=== PATIENT | male | born 1980 | race Two or more races ===

== ENCOUNTER 2017-01-01 11:33 | Inpatient (IN) | payer MEDICAID ==
[~2017-01-01] VITALS: Ht 167.6 cm; Wt 117.9 kg
[2017-01-01 12:29] VITALS: BP 181/120
[2017-01-01 12:34] LABS: BASOPHILS % (AUTO) 1.5 % (0.0-2.0); EOSINOPHILS % (AUTO) 4.4 % (0.0-3.0); LYMPHOCYTES % (AUTO) 15.3 % (20.0-45.0); MEAN CORPUSCULAR HGB CONC 33.2 G/DL (32.0-36.0); MEAN CORPUSCULAR VOLUME 93 FL (80-99); MEAN PLATELET VOLUME 8.2 FL (6.5-10.1); MONOCYTES % (AUTO) 6.4 % (1.0-10.0); NEUTROPHILS % (AUTO) 72.5 % (45.0-75.0); PLATELET COUNT 181 K/UL (150-450); RED BLOOD COUNT 4.43 M/UL (4.70-6.10); WHITE BLOOD COUNT 9.8 K/UL (4.8-10.8)
[2017-01-01 12:41] LABS: KETONES,URINE NEGATIVE (NEGATIVE); LEUKOCYTE ESTERASE ,URINE 1+ (NEGATIVE); NITRITE,URINE NEGATIVE (NEGATIVE); PH,URINE 7 (4.5-8.0); PROTEIN,URINE 2+ (NEGATIVE); UROBILINOGEN,URINE NORMAL MG/DL (0.0-1.0)
[2017-01-01 12:43] LABS: APPEARANCE,URINE SLIGHTLY CLOUDY
[2017-01-01 12:45] LABS: ALANINE AMINOTRANSFERASE 47 U/L (12-78); ALBUMIN/GLOBULIN RATIO 0.9 (1.0-2.7); ANION GAP 6 mmol/L (5-15); ASPARTATE AMINO TRANSFERASE 47 U/L (15-37); CALCIUM 9.1 MG/DL (8.5-10.1); CARBON DIOXIDE 31 MMOL/L (21-32); CHLORIDE 106 MMOL/L (98-107); CREATININE 1.1 MG/DL (0.55-1.30); GLOMERULAR FILTRATION RATE > 60 mL/min (>60); POTASSIUM 4.1 MMOL/L (3.5-5.1); SODIUM 143 MMOL/L (136-145); TOTAL PROTEIN 7.4 G/DL (6.4-8.2)
[2017-01-01 12:51] LABS: BACTERIA,URINE FEW /HPF; RBC,URINE 0-2 /HPF (0 - 0); SQUAMOUS EPITHELIAL CELL,UR FEW /LPF (NONE/OCC)
[2017-01-01] MEDS ORDERED: Lisinopril 20mg tab ORAL ONE (14:30)
[2017-01-01] MEDS ORDERED: Nitroglycerin 2% oint pkt TOPIC ONE (14:30)
--- NOTE | 2017-01-01 14:41 | Diagnostic Imaging Report ---
Indication: SOB, chest pain Technique: One view of the chest Comparison: none Findings: Body habitus limits evaluation. Heart is enlarged. There is generalized mild interstitial congestion. No focal airspace consolidation. No effusions. Impression: Cardiomegaly with generalized mild interstitial congestion
[2017-01-01 15:01] VITALS: BP 206/156
[2017-01-01 15:30] VITALS: BP 201/138
[2017-01-01] MEDS ORDERED: NKM (15:38)
[2017-01-01 15:56] VITALS: BP 198/129
--- NOTE | 2017-01-01 16:34 | Emergency Room Report ---
History of Present Illness General Chief Complaint: Dyspnea/Respdistress Source: Patient Present Illness HPI This patient complains of a week of pain in his lower chest and upper abdomen. He is also has shortness of breath. He denies recent illness. Denies cough or congestion. Denies fever chills. He has never had this previously. He has no other complaints. Allergies: Coded Allergies: No Known Allergies (Unverified , 01/01/17) Patient History Past Medical History: none Past Surgical History: none Social History: Denies: smoking, alcohol use, drug use Reviewed Nursing Documentation: PMH: Agreed, PSxH: Agreed Nursing Documentation-PMH Hx Cardiac Problems: No Hx Hypertension: No Hx Pacemaker: No Review of Systems All Other Systems: negative except mentioned in HPI Physical Exam Vital Signs Date Time Temp Pulse Resp B/P (MAP) Pulse Ox O2 Delivery O2 Flow Rate FiO2 01/01/17 11:35 99.1 103 18 193/136 93 Room Air Sp02 EP Interpretation: reviewed, normal General Appearance: no apparent distress, alert, GCS 15, non-toxic Head: normocephalic, atraumatic Eyes: bilateral eye normal inspection, bilateral eye PERRL ENT: hearing grossly normal, normal pharynx, no angioedema, normal voice Neck: full range of motion, supple/symm/no masses Respiratory: chest non-tender, no respiratory distress, no retraction, no accessory muscle use, rales, speaking full sentences Cardiovascular #1: regular rate, rhythm, no edema Gastrointestinal: normal bowel sounds, non tender, soft, non-distended, no guarding, no rebound Rectal: deferred Musculoskeletal: back normal, gait/station normal, normal range of motion, non- tender Neurologic: alert, oriented x3, responsive, motor strength/tone normal, sensory intact, speech normal Psychiatric: judgement/insight normal, memory normal, mood/affect normal, no suicidal/homicidal ideation Skin: normal color, no rash, warm/dry, well hydrated Medical Decision Making Diagnostic Impression: Primary Impression: CHF (congestive heart failure) Additional Impressions: Cardiomegaly Malignant hypertension ER Course This patient presents with a new diagnosis of congestive heart failure. He has cardiomegaly on chest x-ray. He was also found to be very hypertensive with systolic blood pressures over 200. He does have a negative troponin. He was given lisinopril orally. He is also given hydralazine IV. Nitro paste was placed on his chest wall and he was given Lasix IV. He will be admitted for further evaluation and treatment by cardiology. Laboratory Tests Test 01/01/17 12:16 01/01/17 12:32 White Blood Count 9.8 K/UL (4.8-10.8) Red Blood Count 4.43 M/UL (4.70-6.10) L Hemoglobin 13.8 G/DL (14.2-18.0) L Hematocrit 41.4 % (42.0-52.0) L Mean Corpuscular Volume 93 FL (80-99) Mean Corpuscular Hemoglobin 31.0 PG (27.0-31.0) Mean Corpuscular Hemoglobin Concent 33.2 G/DL (32.0-36.0) Red Cell Distribution Width 11.0 % (11.6-14.8) L Platelet Count 181 K/UL (150-450) Mean Platelet Volume 8.2 FL (6.5-10.1) Neutrophils (%) (Auto) 72.5 % (45.0-75.0) Lymphocytes (%) (Auto) 15.3 % (20.0-45.0) L Monocytes (%) (Auto) 6.4 % (1.0-10.0) Eosinophils (%) (Auto) 4.4 % (0.0-3.0) H Basophils (%) (Auto) 1.5 % (0.0-2.0) Sodium Level 143 MMOL/L (136-145) Potassium Level 4.1 MMOL/L (3.5-5.1) Chloride Level 106 MMOL/L (98-107) Carbon Dioxide Level 31 MMOL/L (21-32) Anion Gap 6 mmol/L (5-15) Blood Urea Nitrogen 14 mg/dL (7-18) Creatinine 1.1 MG/DL (0.55-1.30) Estimate Glomerular Filtration Rate > 60 mL/min (>60) Glucose Level 143 MG/DL (74-106) H Calcium Level 9.1 MG/DL (8.5-10.1) Total Bilirubin 0.9 MG/DL (0.2-1.0) Aspartate Amino Transferase (AST) 47 U/L (15-37) H Alanine Aminotransferase (ALT) 47 U/L (12-78) Alkaline Phosphatase 113 U/L (46-116) Total Protein 7.4 G/DL (6.4-8.2) Albumin 3.6 G/DL (3.4-5.0) Globulin 3.8 g/dL Albumin/Globulin Ratio 0.9 (1.0-2.7) L Urine Color Yellow Urine Appearance Slightly cloudy Urine pH 7 (4.5-8.0) Urine Specific [place] 1.010 (1.005-1.035) Urine Protein 2+ (NEGATIVE) H Urine Glucose (UA) Negative (NEGATIVE) Urine Ketones Negative (NEGATIVE) Urine Occult Blood Negative (NEGATIVE) Urine Nitrite Negative (NEGATIVE) Urine Bilirubin Negative (NEGATIVE) Urine Urobilinogen Normal MG/DL (0.0-1.0) Urine Leukocyte Esterase 1+ (NEGATIVE) H Urine RBC 0-2 /HPF (0 - 0) H Urine WBC 2-4 /HPF (0 - 0) Urine Squamous Epithelial Cells Few /LPF (NONE/OCC) Urine Bacteria Few /HPF (NONE) Troponin I 0.012 ng/mL (0.000-0.056) Pro-B-Type Natriuretic Peptide 1291 pg/mL (0-125) H EKG Diagnostic Results Rate: normal Rhythm: NSR ST Segments: other Other Impression NSST Rhythm Strip Diag. Results EP Interpretation: yes Rate: 90's Rhythm: NSR, no PVC's, no ectopy Chest X-Ray Diagnostic Results Chest X-Ray Diagnostic Results : Chest X-Ray Ordered: Yes # of Views/Limited/Complete: 1 View Indication: Shortness of Breath EP Interpretation: No Interpretation: no consolidation, no effusion, no pneumothorax, other Impression: Other - Cardiomegaly with patchy opacities Electronically Signed by: Dav Last Vital Signs Date Time Temp Pulse Resp B/P (MAP) Pulse Ox O2 Delivery O2 Flow Rate FiO2 01/01/17 15:56 99 16 198/129 99 Room Air 01/01/17 15:01 99.1 Disposition: ADMITTED INPATIENT Condition: Serious Referrals: NOT CHOSEN IPA/,REFERRING (PCP) SAUL ANDERSON D.O. Jan 01, 2017 16:34
[2017-01-01] MEDS ORDERED: Albuterol/Ipratropium 3ml neb HHN PRN (16:45)
[2017-01-01] MEDS ORDERED: Miralax 17gm pkt ORAL PRN (16:45)
[2017-01-01 17:15] VITALS: BP 159/109
--- NOTE | 2017-01-01 17:36 | History and Physical ---
History of Present Illness General Date patient seen: Jan 01, 2017 Time patient seen: 17:36 Reason for Hospitalization: Dyspnea/Respdistress Present Illness HPI 36y/o male with no sig pmh who presents with SOB and epigastric pain. Pt notes worsening SOB since this morning especially with activity but also at rest. Also w/ orthopnea and PND. Denies sig BLE swelling, f/c, n/v, d/c, dysuria. C/o epigastric pain. Denies recent travel, sick contacts and trauma. Allergies: Coded Allergies: No Known Allergies (Unverified , 01/01/17) Medication History Scheduled No Known Medications* (NKM - No Known Medications*), 0 ., (Reported) Patient History History Provided By: Patient, Family Member, Medical Record Healthcare decision maker Resuscitation status Advanced Directive on File Past Medical/Surgical History Past Medical/Surgical History: (1) No pertinent past medical history Family History Family History: Patient reports no known family medical history. Social History Social History: (1) No significant social history Review of Systems Constitutional: Reports: no symptoms Eye: Reports: no symptoms ENT: Reports: no symptoms Respiratory: Reports: orthopnea, shortness of breath, SALAS Cardiovascular: Reports: no symptoms Gastrointestinal: Reports: abdominal pain Genitourinary: Reports: no symptoms Musculoskeletal: Reports: no symptoms Skin: Reports: no symptoms Psychiatric: Reports: no symptoms Neurological: Reports: no symptoms Endocrine: Reports: no symptoms Hematologic/Lymphatic: Reports: no symptoms Physical Exam Physical Exam Narrative General: alert, cooperative, no distress, appears stated age Head: normocephalic, without obvious abnormality, atraumatic Eyes: conjunctivae/corneas clear. PERRL, EOM's intact Throat: lips, mucosa, and tongue normal. MMM Neck: supple, symmetrical, trachea midline, and no JVD Lungs: +mild crackles b/l Heart: regular rate and rhythm, S1, S2 normal, no murmur, click, rub or gallop Abdomen: soft, non-tender, non-distended, bowel sounds normal; no masses or organomegaly Extremities: extremities normal, atraumatic, no cyanosis or edema Pulses: 2+ and symmetric Skin: skin color, texture, turgor normal; no rashes or lesions Neurologic: grossly normal, no focal deficits Last 24 Hour Vital Signs Date Time Temp Pulse Resp B/P (MAP) Pulse Ox O2 Delivery O2 Flow Rate FiO2 01/01/17 17:20 99.1 92 9 159/109 94 Room Air 01/01/17 17:15 99.1 92 9 159/109 94 Room Air 01/01/17 16:34 182/124 01/01/17 15:56 99 16 198/129 99 Room Air 01/01/17 15:30 92 16 201/138 98 Room Air 01/01/17 15:01 99.1 97 16 206/156 96 Room Air 01/01/17 14:31 210/146 01/01/17 14:31 210/146 01/01/17 12:29 99.1 95 22 181/120 97 Room Air 01/01/17 12:29 103 18 Room Air 01/01/17 11:38 99.1 103 18 193/136 93 Room Air 01/01/17 11:35 99.1 103 18 193/136 93 Room Air Laboratory Tests Test 01/01/17 12:16 01/01/17 12:32 White Blood Count 9.8 K/UL (4.8-10.8) Red Blood Count 4.43 M/UL (4.70-6.10) L Hemoglobin 13.8 G/DL (14.2-18.0) L Hematocrit 41.4 % (42.0-52.0) L Mean Corpuscular Volume 93 FL (80-99) Mean Corpuscular Hemoglobin 31.0 PG (27.0-31.0) Mean Corpuscular Hemoglobin Concent 33.2 G/DL (32.0-36.0) Red Cell Distribution Width 11.0 % (11.6-14.8) L Platelet Count 181 K/UL (150-450) Mean Platelet Volume 8.2 FL (6.5-10.1) Neutrophils (%) (Auto) 72.5 % (45.0-75.0) Lymphocytes (%) (Auto) 15.3 % (20.0-45.0) L Monocytes (%) (Auto) 6.4 % (1.0-10.0) Eosinophils (%) (Auto) 4.4 % (0.0-3.0) H Basophils (%) (Auto) 1.5 % (0.0-2.0) Sodium Level 143 MMOL/L (136-145) Potassium Level 4.1 MMOL/L (3.5-5.1) Chloride Level 106 MMOL/L (98-107) Carbon Dioxide Level 31 MMOL/L (21-32) Anion Gap 6 mmol/L (5-15) Blood Urea Nitrogen 14 mg/dL (7-18) Creatinine 1.1 MG/DL (0.55-1.30) Estimat Glomerular Filtration Rate > 60 mL/min (>60) Glucose Level 143 MG/DL (74-106) H Calcium Level 9.1 MG/DL (8.5-10.1) Total Bilirubin 0.9 MG/DL (0.2-1.0) Aspartate Amino Transf (AST/SGOT) 47 U/L (15-37) H Alanine Aminotransferase (ALT/SGPT) 47 U/L (12-78) Alkaline Phosphatase 113 U/L (46-116) Total Protein 7.4 G/DL (6.4-8.2) Albumin 3.6 G/DL (3.4-5.0) Globulin 3.8 g/dL Albumin/Globulin Ratio 0.9 (1.0-2.7) L Urine Color Yellow Urine Appearance Slightly cloudy Urine pH 7 (4.5-8.0) Urine Specific [place] 1.010 (1.005-1.035) Urine Protein 2+ (NEGATIVE) H Urine Glucose (UA) Negative (NEGATIVE) Urine Ketones Negative (NEGATIVE) Urine Occult Blood Negative (NEGATIVE) Urine Nitrite Negative (NEGATIVE) Urine Bilirubin Negative (NEGATIVE) Urine Urobilinogen Normal MG/DL (0.0-1.0) Urine Leukocyte Esterase 1+ (NEGATIVE) H Urine RBC 0-2 /HPF (0 - 0) H Urine WBC 2-4 /HPF (0 - 0) Urine Squamous Epithelial Cells Few /LPF (NONE/OCC) Urine Bacteria Few /HPF (NONE) Troponin I 0.012 ng/mL (0.000-0.056) Pro-B-Type Natriuretic Peptide 1291 pg/mL (0-125) H Height (Feet): 5 Height (Inches): 6.00 Weight (Pounds): 260 Medications Current Medications Medications (Trade) Dose Ordered Sig/Bety Route PRN Reason Start Time Stop Time Status Last Admin Dose Admin Acetaminophen (Tylenol) 650 mg Q4H PRN ORAL Mild Pain (Pain Scale 1-3) 01/01/17 16:45 01/31/17 16:44 Albuterol/ Ipratropium (DuoNeb 0.5-3(2.5)mg/3ml) 3 ml Q4H PRN HHN Shortness of Breath 01/01/17 16:45 01/06/17 16:44 Dextrose (Dextrose 50%) STAT PRN IV Hypoglycemia 01/01/17 16:45 01/31/17 16:44 Docusate Sodium (Colace) 100 mg EVERY 12 HOURS ORAL 01/01/17 21:00 01/31/17 20:59 Heparin Sodium (Porcine) (Heparin 5000 units/ml) 5,000 units EVERY 12 HOURS SUBQ 01/01/17 21:00 01/31/17 20:59 Ondansetron HCl (Zofran) 4 mg Q6H PRN IVP Nausea & Vomiting 01/01/17 16:45 01/31/17 16:44 Polyethylene Glycol (Miralax) 17 gm DAILYPRN PRN ORAL Constipation 01/01/17 16:45 01/31/17 16:44 Assessment/Plan Problem List: (1) Hypertensive urgency ICD Codes: I16.0 - Hypertensive urgency SNOMED: 344140562 (2) CHF (congestive heart failure) ICD Codes: I50.9 - Heart failure, unspecified SNOMED: 89153350 Status: stable Assessment/Plan Admit to tele Trend trop/EKG Check TTE Lasix 20mg IV BID Strict I/O's, daily weights Start coreg 3.125mg BID Start lisinopril 20mg daily Cardiology and pulm eval FULL CODE D/w pt/family, RN, cardiology and pulm regarding mgmt and dispo Ludwin Child M.D. Jan 01, 2017 17:36
[2017-01-01 17:48] VITALS: BP 152/113
[2017-01-01] MEDS: Docusate 100mg cap ORAL SCH (20:54)
[2017-01-01] MEDS: Carvedilol 6.25mg Tab ORAL SCH (20:54)
[2017-01-01] MEDS: Heparin 5000 units/ml inj SUBQ SCH (20:56)
[2017-01-02 00:25] VITALS: BP 159/111
[2017-01-02 08:14] VITALS: BP 154/98
[2017-01-02] MEDS: Docusate 100mg cap ORAL SCH ×2 (08:18→19:52)
[2017-01-02] MEDS: Carvedilol 6.25mg Tab ORAL SCH ×2 (08:18→19:56)
[2017-01-02] MEDS: Heparin 5000 units/ml inj SUBQ SCH ×2 (08:21→19:59)
[2017-01-02 08:28] LABS: BASOPHILS % (AUTO) 1.2 % (0.0-2.0); MEAN CORPUSCULAR HEMOGLOBIN 31.8 PG (27.0-31.0); MEAN CORPUSCULAR HGB CONC 33.6 G/DL (32.0-36.0); MEAN CORPUSCULAR VOLUME 95 FL (80-99); MONOCYTES % (AUTO) 8.6 % (1.0-10.0); NEUTROPHILS % (AUTO) 65.1 % (45.0-75.0); PLATELET COUNT 202 K/UL (150-450); RED CELL DISTRIBUTION WIDTH 11.3 % (11.6-14.8); WHITE BLOOD COUNT 8.4 K/UL (4.8-10.8)
[2017-01-02 08:30] LABS: ALANINE AMINOTRANSFERASE 40 U/L (12-78); ASPARTATE AMINO TRANSFERASE 24 U/L (15-37); BILIRUBIN,DIRECT 0.2 MG/DL (0.0-0.3); CHOLESTEROL 152 MG/DL (< 200); CHOLESTEROL/HDL RATIO 3.1 (3.3-4.4); THYROID STIMULATING HORMONE 3.606 uiU/mL (0.360-3.740); TOTAL PROTEIN 7.5 G/DL (6.4-8.2)
[2017-01-02] MEDS ORDERED: Lisinopril 20mg tab ORAL SCH (09:00)
[2017-01-02 09:26] LABS: ANION GAP 9 mmol/L (5-15); CALCIUM 9.2 MG/DL (8.5-10.1); CARBON DIOXIDE 32 MMOL/L (21-32); CHLORIDE 103 MMOL/L (98-107); CREATININE 1.4 MG/DL (0.55-1.30); MAGNESIUM 2.2 MG/DL (1.8-2.4); POTASSIUM 3.3 MMOL/L (3.5-5.1); SODIUM 144 MMOL/L (136-145)
[2017-01-02 09:30] LABS: HEMOGLOBIN A1C 6.1 % (4.3-6.0)
--- NOTE | 2017-01-02 11:18 | Cardiac Electrophysiology PN ---
Subjective Subjective [id number] Objective Last 24 Hour Vital Signs Date Time Temp Pulse Resp B/P (MAP) Pulse Ox O2 Delivery O2 Flow Rate FiO2 01/02/17 08:20 154/98 01/02/17 08:18 94 154/98 01/02/17 08:14 98.1 94 18 154/98 97 Room Air 01/02/17 04:00 75 01/02/17 00:25 98.2 85 20 159/111 94 Room Air 01/02/17 00:00 88 01/01/17 20:54 92 158/110 01/01/17 20:25 94 18 Room Air 01/01/17 20:00 99 01/01/17 17:48 97.3 95 18 152/113 95 Room Air 01/01/17 17:20 99.1 92 9 159/109 94 Room Air 01/01/17 17:15 99.1 92 9 159/109 94 Room Air 01/01/17 16:34 182/124 01/01/17 15:56 99 16 198/129 99 Room Air 01/01/17 15:30 92 16 201/138 98 Room Air 01/01/17 15:01 99.1 97 16 206/156 96 Room Air 01/01/17 14:31 210/146 01/01/17 14:31 210/146 01/01/17 12:29 99.1 95 22 181/120 97 Room Air 01/01/17 12:29 103 18 Room Air 01/01/17 11:38 99.1 103 18 193/136 93 Room Air 01/01/17 11:35 99.1 103 18 193/136 93 Room Air Intake and Output 01/02/17 01/03/17 19:00 07:00 Intake Total 240 ml Balance 240 ml Intake Oral 240 ml Laboratory Tests Test 01/01/17 12:16 01/01/17 12:32 01/02/17 06:40 White Blood Count 9.8 K/UL (4.8-10.8) 8.4 K/UL (4.8-10.8) Red Blood Count 4.43 M/UL (4.70-6.10) L 4.40 M/UL (4.70-6.10) L Hemoglobin 13.8 G/DL (14.2-18.0) L 14.0 G/DL (14.2-18.0) L Hematocrit 41.4 % (42.0-52.0) L 41.6 % (42.0-52.0) L Mean Corpuscular Volume 93 FL (80-99) 95 FL (80-99) Mean Corpuscular Hemoglobin 31.0 PG (27.0-31.0) 31.8 PG (27.0-31.0) H Mean Corpuscular Hemoglobin Concent 33.2 G/DL (32.0-36.0) 33.6 G/DL (32.0-36.0) Red Cell Distribution Width 11.0 % (11.6-14.8) L 11.3 % (11.6-14.8) L Platelet Count 181 K/UL (150-450) 202 K/UL (150-450) Mean Platelet Volume 8.2 FL (6.5-10.1) 9.0 FL (6.5-10.1) Neutrophils (%) (Auto) 72.5 % (45.0-75.0) 65.1 % (45.0-75.0) Lymphocytes (%) (Auto) 15.3 % (20.0-45.0) L 21.0 % (20.0-45.0) Monocytes (%) (Auto) 6.4 % (1.0-10.0) 8.6 % (1.0-10.0) Eosinophils (%) (Auto) 4.4 % (0.0-3.0) H 4.0 % (0.0-3.0) H Basophils (%) (Auto) 1.5 % (0.0-2.0) 1.2 % (0.0-2.0) Sodium Level 143 MMOL/L (136-145) 144 MMOL/L (136-145) Potassium Level 4.1 MMOL/L (3.5-5.1) 3.3 MMOL/L (3.5-5.1) L Chloride Level 106 MMOL/L (98-107) 103 MMOL/L (98-107) Carbon Dioxide Level 31 MMOL/L (21-32) 32 MMOL/L (21-32) Anion Gap 6 mmol/L (5-15) 9 mmol/L (5-15) Blood Urea Nitrogen 14 mg/dL (7-18) 16 mg/dL (7-18) Creatinine 1.1 MG/DL (0.55-1.30) 1.4 MG/DL (0.55-1.30) H Estimat Glomerular Filtration Rate > 60 mL/min (>60) 57.0 mL/min (>60) Glucose Level 143 MG/DL (74-106) H 88 MG/DL (74-106) Calcium Level 9.1 MG/DL (8.5-10.1) 9.2 MG/DL (8.5-10.1) Total Bilirubin 0.9 MG/DL (0.2-1.0) 1.0 MG/DL (0.2-1.0) Aspartate Amino Transf (AST/SGOT) 47 U/L (15-37) H 24 U/L (15-37) Alanine Aminotransferase (ALT/SGPT) 47 U/L (12-78) 40 U/L (12-78) Alkaline Phosphatase 113 U/L (46-116) 108 U/L (46-116) Total Protein 7.4 G/DL (6.4-8.2) 7.5 G/DL (6.4-8.2) Albumin 3.6 G/DL (3.4-5.0) 3.7 G/DL (3.4-5.0) Globulin 3.8 g/dL Albumin/Globulin Ratio 0.9 (1.0-2.7) L Urine Color Yellow Urine Appearance Slightly cloudy Urine pH 7 (4.5-8.0) Urine Specific [place] 1.010 (1.005-1.035) Urine Protein 2+ (NEGATIVE) H Urine Glucose (UA) Negative (NEGATIVE) Urine Ketones Negative (NEGATIVE) Urine Occult Blood Negative (NEGATIVE) Urine Nitrite Negative (NEGATIVE) Urine Bilirubin Negative (NEGATIVE) Urine Urobilinogen Normal MG/DL (0.0-1.0) Urine Leukocyte Esterase 1+ (NEGATIVE) H Urine RBC 0-2 /HPF (0 - 0) H Urine WBC 2-4 /HPF (0 - 0) Urine Squamous Epithelial Cells Few /LPF (NONE/OCC) Urine Bacteria Few /HPF (NONE) Troponin I 0.012 ng/mL (0.000-0.056) 0.011 ng/mL (0.000-0.056) Pro-B-Type Natriuretic Peptide 1291 pg/mL (0-125) H 750 pg/mL (0-125) H Urine Opiates Screen Negative (NEGATIVE) Urine Barbiturates Screen Negative (NEGATIVE) Phencyclidine (PCP) Screen Negative (NEGATIVE) Urine Amphetamines Screen Negative (NEGATIVE) Urine Benzodiazepines Screen Negative (NEGATIVE) Urine Cocaine Screen Negative (NEGATIVE) Urine Marijuana (THC) Screen Negative (NEGATIVE) Hemoglobin A1c 6.1 % (4.3-6.0) H Magnesium Level 2.2 MG/DL (1.8-2.4) Direct Bilirubin 0.2 MG/DL (0.0-0.3) Triglycerides Level 98 MG/DL (0-200) Cholesterol Level 152 MG/DL (< 200) LDL Cholesterol 102 mg/dL (<100) H HDL Cholesterol 49 MG/DL (40-60) Cholesterol/HDL Ratio 3.1 (3.3-4.4) L Thyroid Stimulating Hormone (TSH) 3.606 uiU/mL (0.360-3.740) RASHEL MA Jan 02, 2017 11:18
[2017-01-02 11:21] VITALS: BP 148/104
--- NOTE | 2017-01-02 15:36 | Consultation ---
History of Present Illness General Date patient seen: Jan 02, 2017 Chief Complaint: Dyspnea/Respdistress Present Illness HPI 36 year old male without any PMHx presented to [facility] with CC of pain in his lower chest and upper abdomen. He is also has shortness of breath. He denies recent illness. Denies cough or congestion. Denies fever chills. His CXR showed cardiomegaly and mild edema. He is admitted for further evaluation. Allergies: Coded Allergies: No Known Allergies (Unverified , 01/01/17) Medication History Scheduled No Known Medications* (NKM - No Known Medications*), 0 ., (Reported) Patient History Healthcare decision maker Resuscitation status Full Code Advanced Directive on File Past Medical/Surgical History Past Medical/Surgical History: (1) No pertinent past medical history Review of Systems All Other Systems: negative except mentioned in HPI Physical Exam General Appearance: WD/WN Lines, tubes and drains: peripheral HEENT: normocephalic, anicteric Neck: non-tender, normal alignment Respiratory/Chest: chest wall non-tender, lungs clear Cardiovascular/Chest: normal peripheral pulses, normal rate Abdomen: normal bowel sounds Genitourinary/Rectal: normal genital exam Last 24 Hour Vital Signs Date Time Temp Pulse Resp B/P (MAP) Pulse Ox O2 Delivery O2 Flow Rate FiO2 01/02/17 11:21 98.1 83 20 148/104 90 Room Air 01/02/17 10:01 83 18 Room Air 01/02/17 08:20 154/98 01/02/17 08:18 94 154/98 01/02/17 08:14 98.1 94 18 154/98 97 Room Air 01/02/17 04:00 75 01/02/17 00:25 98.2 85 20 159/111 94 Room Air 01/02/17 00:00 88 01/01/17 20:54 92 158/110 01/01/17 20:25 94 18 Room Air 01/01/17 20:00 99 01/01/17 17:48 97.3 95 18 152/113 95 Room Air 01/01/17 17:20 99.1 92 9 159/109 94 Room Air 01/01/17 17:15 99.1 92 9 159/109 94 Room Air 01/01/17 16:34 182/124 01/01/17 15:56 99 16 198/129 99 Room Air Intake and Output 01/02/17 01/03/17 19:00 07:00 Intake Total 240 ml Balance 240 ml Intake Oral 240 ml Laboratory Tests Test 01/02/17 06:40 White Blood Count 8.4 K/UL (4.8-10.8) Red Blood Count 4.40 M/UL (4.70-6.10) L Hemoglobin 14.0 G/DL (14.2-18.0) L Hematocrit 41.6 % (42.0-52.0) L Mean Corpuscular Volume 95 FL (80-99) Mean Corpuscular Hemoglobin 31.8 PG (27.0-31.0) H Mean Corpuscular Hemoglobin Concent 33.6 G/DL (32.0-36.0) Red Cell Distribution Width 11.3 % (11.6-14.8) L Platelet Count 202 K/UL (150-450) Mean Platelet Volume 9.0 FL (6.5-10.1) Neutrophils (%) (Auto) 65.1 % (45.0-75.0) Lymphocytes (%) (Auto) 21.0 % (20.0-45.0) Monocytes (%) (Auto) 8.6 % (1.0-10.0) Eosinophils (%) (Auto) 4.0 % (0.0-3.0) H Basophils (%) (Auto) 1.2 % (0.0-2.0) Sodium Level 144 MMOL/L (136-145) Potassium Level 3.3 MMOL/L (3.5-5.1) L Chloride Level 103 MMOL/L (98-107) Carbon Dioxide Level 32 MMOL/L (21-32) Anion Gap 9 mmol/L (5-15) Blood Urea Nitrogen 16 mg/dL (7-18) Creatinine 1.4 MG/DL (0.55-1.30) H Estimat Glomerular Filtration Rate 57.0 mL/min (>60) Glucose Level 88 MG/DL (74-106) Hemoglobin A1c 6.1 % (4.3-6.0) H Calcium Level 9.2 MG/DL (8.5-10.1) Magnesium Level 2.2 MG/DL (1.8-2.4) Total Bilirubin 1.0 MG/DL (0.2-1.0) Direct Bilirubin 0.2 MG/DL (0.0-0.3) Aspartate Amino Transf (AST/SGOT) 24 U/L (15-37) Alanine Aminotransferase (ALT/SGPT) 40 U/L (12-78) Alkaline Phosphatase 108 U/L (46-116) Troponin I 0.011 ng/mL (0.000-0.056) Pro-B-Type Natriuretic Peptide 750 pg/mL (0-125) H Total Protein 7.5 G/DL (6.4-8.2) Albumin 3.7 G/DL (3.4-5.0) Triglycerides Level 98 MG/DL (0-200) Cholesterol Level 152 MG/DL (< 200) LDL Cholesterol 102 mg/dL (<100) H HDL Cholesterol 49 MG/DL (40-60) Cholesterol/HDL Ratio 3.1 (3.3-4.4) L Thyroid Stimulating Hormone (TSH) 3.606 uiU/mL (0.360-3.740) Height (Feet): 5 Height (Inches): 6.00 Weight (Pounds): 260 Medications Current Medications Medications (Trade) Dose Ordered Sig/Bety Route PRN Reason Start Time Stop Time Status Last Admin Dose Admin Acetaminophen (Tylenol) 650 mg Q4H PRN ORAL Mild Pain (Pain Scale 1-3) 01/01/17 16:45 01/31/17 16:44 Albuterol/ Ipratropium (DuoNeb 0.5-3(2.5)mg/3ml) 3 ml Q4H PRN HHN Shortness of Breath 01/01/17 16:45 01/06/17 16:44 Carvedilol (Coreg) 6.25 mg EVERY 12 HOURS ORAL 01/01/17 21:00 01/31/17 20:59 01/02/17 08:18 Dextrose (Dextrose 50%) STAT PRN IV Hypoglycemia 01/01/17 16:45 01/31/17 16:44 Docusate Sodium (Colace) 100 mg EVERY 12 HOURS ORAL 01/01/17 21:00 01/31/17 20:59 01/02/17 08:18 Heparin Sodium (Porcine) (Heparin 5000 units/ml) 5,000 units EVERY 12 HOURS SUBQ 01/01/17 21:00 01/31/17 20:59 01/02/17 08:21 Ondansetron HCl (Zofran) 4 mg Q6H PRN IVP Nausea & Vomiting 01/01/17 16:45 01/31/17 16:44 Polyethylene Glycol (Miralax) 17 gm DAILYPRN PRN ORAL Constipation 01/01/17 16:45 01/31/17 16:44 Assessment/Plan Problem List: (1) Hypertensive urgency ICD Codes: I16.0 - Hypertensive urgency SNOMED: 646489058 (2) Pulmonary edema ICD Codes: J81.1 - Chronic pulmonary edema SNOMED: 65478297 Assessment/Plan improving dc lasix watch creatinine ANTONIO SHERMAN Jan 02, 2017 15:36
[2017-01-02 15:58] VITALS: BP 129/88
--- NOTE | 2017-01-02 16:14 | Diagnostic Imaging Report ---
Indication: Dyspnea Comparison: 01/01/17 A single view chest radiograph was obtained. Findings: Pulmonary vascularity has improved. Currently lungs are clear with normal vascularity. Heart currently appears borderline enlarged. Bones are unremarkable. Impression: No acute disease
--- NOTE | 2017-01-02 17:37 | General Progress Note ---
Assessment/Plan Problem List: (1) Hypertensive urgency ICD Codes: I16.0 - Hypertensive urgency SNOMED: 897628186 (2) Acute on chronic combined systolic and diastolic CHF (congestive heart failure) Assessment & Plan: Likely in setting of hypertensive urgency ICD Codes: I50.43 - Acute on chronic combined systolic (congestive) and diastolic (congestive) heart failure SNOMED: 72410754, [id number] Status: stable Assessment/Plan Monitor on tele Appreciate pulm and cardiology eval F/u TTE--EF 40-45% F/u repeat CXR--improved PVC Hold lasix and lisinopril given ARMANDO Cont coreg 6.25mg BID Plan for stress test in AM per cardiology Possible d/c tomorrow pending stress test FULL CODE D/w pt/family, RN, pulm, cardiology re mgmt and dispo Subjective Date patient seen: Jan 02, 2017 Time patient seen: 12:00 ROS Limited/Unobtainable: No Constitutional: Reports: no symptoms HEENT: Reports: no symptoms Cardiovascular: Reports: no symptoms Respiratory: Reports: shortness of breath Gastrointestinal/Abdominal: Reports: no symptoms Genitourinary: Reports: no symptoms Neurologic/Psychiatric: Reports: no symptoms Endocrine: Reports: no symptoms Hematologic/Lymphatic: Reports: no symptoms Allergies: Coded Allergies: No Known Allergies (Unverified , 01/01/17) Subjective No acute o/n events Cr uptrending to 1.4 Pt states SOB improved. Ambulating in room. Denies f/c, n/v, d/c, chest pain, abd pain Objective Last 24 Hour Vital Signs Date Time Temp Pulse Resp B/P (MAP) Pulse Ox O2 Delivery O2 Flow Rate FiO2 01/02/17 15:58 98.2 81 21 129/88 91 Room Air 01/02/17 11:21 98.1 83 20 148/104 90 Room Air 01/02/17 10:01 83 18 Room Air 01/02/17 08:20 154/98 01/02/17 08:18 94 154/98 01/02/17 08:14 98.1 94 18 154/98 97 Room Air 01/02/17 04:00 75 01/02/17 00:25 98.2 85 20 159/111 94 Room Air 01/02/17 00:00 88 01/01/17 20:54 92 158/110 01/01/17 20:25 94 18 Room Air 01/01/17 20:00 99 01/01/17 17:48 97.3 95 18 152/113 95 Room Air Intake and Output 01/02/17 01/03/17 19:00 07:00 Intake Total 640 ml Balance 640 ml Intake Oral 640 ml Laboratory Tests 01/02/17 06:40: White Blood Count 8.4, Red Blood Count 4.40L, Hemoglobin 14.0L, Hematocrit 41.6L , Mean Corpuscular Volume 95, Mean Corpuscular Hemoglobin 31.8H, Mean Corpuscular Hemoglobin Concent 33.6, Red Cell Distribution Width 11.3L, Platelet Count 202, Mean Platelet Volume 9.0, Neutrophils (%) (Auto) 65.1, Lymphocytes (%) (Auto) 21.0, Monocytes (%) (Auto) 8.6, Eosinophils (%) (Auto) 4.0H, Basophils (%) (Auto) 1.2, Sodium Level 144, Potassium Level 3.3L, Chloride Level 103, Carbon Dioxide Level 32, Anion Gap 9, Blood Urea Nitrogen 16 , Creatinine 1.4H, Estimat Glomerular Filtration Rate 57.0, Glucose Level 88, Hemoglobin A1c 6.1H, Calcium Level 9.2, Magnesium Level 2.2, Total Bilirubin 1.0 , Direct Bilirubin 0.2, Aspartate Amino Transf (AST/SGOT) 24, Alanine Aminotransferase (ALT/SGPT) 40, Alkaline Phosphatase 108, Troponin I 0.011, Pro- B-Type Natriuretic Peptide 750H, Total Protein 7.5, Albumin 3.7, Triglycerides Level 98, Cholesterol Level 152, LDL Cholesterol 102H, HDL Cholesterol 49, Cholesterol/HDL Ratio 3.1L, Thyroid Stimulating Hormone (TSH) 3.606 Height (Feet): 5 Height (Inches): 6.00 Weight (Pounds): 260 Objective General: alert, cooperative, no distress, appears stated age Head: normocephalic, without obvious abnormality, atraumatic Eyes: conjunctivae/corneas clear. PERRL, EOM's intact Throat: lips, mucosa, and tongue normal. MMM Neck: supple, symmetrical, trachea midline, and no JVD Lungs: clear to auscultation bilaterally Heart: regular rate and rhythm, S1, S2 normal, no murmur, click, rub or gallop Abdomen: soft, non-tender, non-distended, bowel sounds normal; no masses or organomegaly Extremities: extremities normal, atraumatic, no cyanosis or edema Pulses: 2+ and symmetric Skin: skin color, texture, turgor normal; no rashes or lesions Neurologic: grossly normal, no focal deficits Ludwin Child M.D. Jan 02, 2017 17:37
--- NOTE | 2017-01-02 17:45 | Consultation ---
DATE OF CONSULTATION: 01/02/2017 CARDIOLOGY CONSULTATION CONSULTING PHYSICIAN: Gadiel Herrera M.D. REFERRING PHYSICIAN: Mimi Morales M.D. REASON FOR CONSULTATION: Shortness of breath. HISTORY OF PRESENT ILLNESS: The patient is a 36-year-old gentleman who presented to the emergency room with lower chest and abdominal pain as well as shortness of breath. The patient denies any prior myocardial infarction, congestive heart failure, or taking any medication at home. In the emergency room, blood pressure was 192/136 with pulse of 102, respirations 18, and temperature was 99.1 degrees. Cardiology consultation was requested for further evaluation and management. PAST MEDICAL HISTORY: Hypertension. MEDICATIONS: At home is none. SOCIAL HISTORY: He lives at home. Does not smoke or drink alcohol. FAMILY HISTORY: Noncontributory. REVIEW OF SYSTEMS: Review of systems was performed and was negative other than what was mentioned in the history of present illness. PHYSICAL EXAMINATION: VITAL SIGNS: Blood pressure 154/98, pulse is 94, respirations 18, and he is afebrile. HEAD AND NECK: Showed no JVD. LUNGS: Decreased breath sounds. CARDIOVASCULAR: Regular S1 and S2 with no gallop or murmur. ABDOMEN: Soft. EXTREMITIES: A 1+ pitting edema. DIAGNOSTIC DATA: His EKG shows sinus rhythm with left atrial enlargement and prolonged QT, T-wave abnormalities. LABORATORY DATA: White count of 8.4, hemoglobin 14, hematocrit 41.6, and platelet count of 202. Sodium 144, potassium 3.3, BUN 46, creatinine 1.4. Troponins are negative x2. BNP was 1291. ASSESSMENT AND PLAN: 1. Accelerated hypertension. Continue Coreg 6.25 mg b.i.d.and Lasix 20 mg IV b.i.d. until we get the final echocardiogram report. We will start on the patient on lisinopril 20 mg daily as well. 2. History of hypertension. Continue Lasix, Coreg, and lisinopril until we get the final echo findings. 3. Prolonged QT with no history of syncope. 4. Obesity. 5. Atypical chest pain likely secondary to pressure and accelerated hypertension. 6. Ruled out myocardial infarction already. We scheduled for nuclear stress test tomorrow. Thank very much, Dr. Morales, for allowing me to participate in the care of this patient. Please do not hesitate to contact me for any questions regarding my evaluation. Gadiel Herrera M.D. DR: Skye JOB#: [id number] CC:
[2017-01-02 20:00] VITALS: BP 158/107
[2017-01-03] VITALS (7 sets, daily range): BP systolic 151–166; BP diastolic 102–124
[2017-01-03 07:54] LABS: BASOPHILS % (AUTO) 2.3 % (0.0-2.0); EOSINOPHILS % (AUTO) 6.5 % (0.0-3.0); LYMPHOCYTES % (AUTO) 26.7 % (20.0-45.0); MEAN CORPUSCULAR HEMOGLOBIN 31.7 PG (27.0-31.0); MEAN CORPUSCULAR HGB CONC 33.9 G/DL (32.0-36.0); MEAN CORPUSCULAR VOLUME 94 FL (80-99); MEAN PLATELET VOLUME 8.6 FL (6.5-10.1); MONOCYTES % (AUTO) 10.2 % (1.0-10.0); NEUTROPHILS % (AUTO) 54.4 % (45.0-75.0); PLATELET COUNT 202 K/UL (150-450); RED CELL DISTRIBUTION WIDTH 11.1 % (11.6-14.8); WHITE BLOOD COUNT 7.2 K/UL (4.8-10.8)
[2017-01-03 08:24] LABS: ALANINE AMINOTRANSFERASE 38 U/L (12-78); ALBUMIN/GLOBULIN RATIO 0.9 (1.0-2.7); ANION GAP 4 mmol/L (5-15); ASPARTATE AMINO TRANSFERASE 20 U/L (15-37); CALCIUM 9.3 MG/DL (8.5-10.1); CARBON DIOXIDE 33 MMOL/L (21-32); CHLORIDE 105 MMOL/L (98-107); CHOLESTEROL 153 MG/DL (< 200); CHOLESTEROL/HDL RATIO 3.1 (3.3-4.4); CREATININE 1.4 MG/DL (0.55-1.30); POTASSIUM 3.7 MMOL/L (3.5-5.1); SODIUM 142 MMOL/L (136-145); TOTAL PROTEIN 7.6 G/DL (6.4-8.2)
[2017-01-03] MEDS: Carvedilol 6.25mg Tab ORAL SCH (09:00)
[2017-01-03] MEDS: Heparin 5000 units/ml inj SUBQ SCH (09:00)
[2017-01-03] MEDS: Docusate 100mg cap ORAL SCH (11:51)
--- NOTE | 2017-01-03 12:51 | Diagnostic Imaging Report ---
Indication: DYSPNEA Technique: One view of the chest Comparison: 01/02/2017 Findings: The heart is enlarged. Lungs and pleural spaces are clear. Findings are unchanged Impression: Unchanged, over one day, findings as above.
[2017-01-03] MEDS ORDERED: NORVASC5 MG ORAL (12:55)
[2017-01-03] MEDS ORDERED: COREG6.25 MG ORAL ×2 (12:55→16:01)
--- NOTE | 2017-01-03 14:51 | Pulmonology Progress Note ---
Assessment/Plan Problems: (1) Hypertensive urgency (2) Pulmonary edema Assessment/Plan improved bp better dc home with hypertensive meds Subjective ROS Limited/Unobtainable: No Constitutional: Reports: no symptoms HEENT: Repors: no symptoms Respiratory: Reports: no symptoms Cardiovascular: Reports: no symptoms Allergies: Coded Allergies: No Known Allergies (Unverified , 01/01/17) Objective Last 24 Hour Vital Signs Date Time Temp Pulse Resp B/P (MAP) Pulse Ox O2 Delivery O2 Flow Rate FiO2 01/03/17 12:12 97.9 77 18 154/112 95 Room Air 01/03/17 08:49 98.1 75 18 162/118 96 Room Air 01/03/17 08:22 71 20 Room Air 01/03/17 05:22 97.7 69 20 151/102 95 Room Air 01/03/17 04:30 97.7 69 20 151/102 95 Room Air 01/03/17 04:00 73 01/03/17 00:00 97.9 79 20 153/121 93 Room Air 01/03/17 00:00 78 01/02/17 20:30 86 20 Room Air 01/02/17 20:00 86 01/02/17 20:00 98.0 124 20 158/107 98 Room Air 01/02/17 19:56 124 158/107 01/02/17 16:00 78 01/02/17 15:58 98.2 81 21 129/88 91 Room Air Intake and Output 01/03/17 01/04/17 19:00 07:00 Intake Total 120 ml Balance 120 ml Intake Oral 120 ml # Voids 2 General Appearance: WD/WN HEENT: normocephalic, atraumatic Respiratory/Chest: chest wall non-tender, lungs clear Cardiovascular: normal peripheral pulses, normal rate Abdomen: normal bowel sounds, soft, non tender Extremities: no clubbing Microbiology Date/Time Source Procedure Growth Status 01/01/17 12:16 Blood Blood Culture - Preliminary NO GROWTH AFTER 24 HOURS Resulted 01/01/17 12:00 Blood Blood Culture - Preliminary NO GROWTH AFTER 24 HOURS Resulted Laboratory Tests 01/03/17 07:37: White Blood Count 7.2, Red Blood Count 4.60L, Hemoglobin 14.6, Hematocrit 43.0, Mean Corpuscular Volume 94, Mean Corpuscular Hemoglobin 31.7H, Mean Corpuscular Hemoglobin Concent 33.9, Red Cell Distribution Width 11.1L, Platelet Count 202, Mean Platelet Volume 8.6, Neutrophils (%) (Auto) 54.4, Lymphocytes (%) (Auto) 26.7, Monocytes (%) (Auto) 10.2H, Eosinophils (%) (Auto) 6.5H, Basophils (%) ( Auto) 2.3H, Sodium Level 142, Potassium Level 3.7, Chloride Level 105, Carbon Dioxide Level 33H, Anion Gap 4L, Blood Urea Nitrogen 19H, Creatinine 1.4H, Estimat Glomerular Filtration Rate 57.0, Glucose Level 94, Calcium Level 9.3, Total Bilirubin 0.9, Aspartate Amino Transf (AST/SGOT) 20, Alanine Aminotransferase (ALT/SGPT) 38, Alkaline Phosphatase 102, Pro-B-Type Natriuretic Peptide 307H, Total Protein 7.6, Albumin 3.7, Globulin 3.9, Albumin/ Globulin Ratio 0.9L, Triglycerides Level 135, Cholesterol Level 153, LDL Cholesterol 98, HDL Cholesterol 50, Cholesterol/HDL Ratio 3.1L Current Medications Medications (Trade) Dose Ordered Sig/Bety Route PRN Reason Start Time Stop Time Status Last Admin Dose Admin Acetaminophen (Tylenol) 650 mg Q4H PRN ORAL Mild Pain (Pain Scale 1-3) 01/01/17 16:45 01/31/17 16:44 Albuterol/ Ipratropium (DuoNeb 0.5-3(2.5)mg/3ml) 3 ml Q4H PRN HHN Shortness of Breath 01/01/17 16:45 01/06/17 16:44 Carvedilol (Coreg) 6.25 mg EVERY 12 HOURS ORAL 01/01/17 21:00 01/31/17 20:59 01/02/17 19:56 Dextrose (Dextrose 50%) STAT PRN IV Hypoglycemia 01/01/17 16:45 01/31/17 16:44 Docusate Sodium (Colace) 100 mg EVERY 12 HOURS ORAL 01/01/17 21:00 01/31/17 20:59 01/03/17 11:51 Heparin Sodium (Porcine) (Heparin 5000 units/ml) 5,000 units EVERY 12 HOURS SUBQ 01/01/17 21:00 01/31/17 20:59 01/02/17 19:59 Ondansetron HCl (Zofran) 4 mg Q6H PRN IVP Nausea & Vomiting 01/01/17 16:45 01/31/17 16:44 Polyethylene Glycol (Miralax) 17 gm DAILYPRN PRN ORAL Constipation 01/01/17 16:45 01/31/17 16:44 ANTONIO SHERMAN Jan 03, 2017 14:51
[2017-01-03] MEDS ORDERED: NORVASC10 MG ORAL (16:01)
[2017-01-03] MEDS ORDERED: COREG12.5 MG ORAL (16:04)
--- NOTE | 2017-01-03 16:06 | Cardiac Electrophysiology PN ---
Assessment/Plan Assessment/Plan 1. Accelerated hypertension. Increase Coreg to 12.5 mg b.i.d.and start on the patient on Norvasc 10 mg daily. 2. SOB ECho EF 45%. 3. Prolonged QT with no history of syncope. 4. Obesity. 5. Atypical chest pain likely secondary to pressure and accelerated hypertension.Stress test cancelled for high BP. Can be done as out patient. Subjective Subjective Stress test cancelled as BP was high.No chest pain or SOB. Objective Last 24 Hour Vital Signs Date Time Temp Pulse Resp B/P (MAP) Pulse Ox O2 Delivery O2 Flow Rate FiO2 01/03/17 15:59 98.2 80 18 166/124 96 Room Air 01/03/17 12:12 97.9 77 18 154/112 95 Room Air 01/03/17 08:49 98.1 75 18 162/118 96 Room Air 01/03/17 08:22 71 20 Room Air 01/03/17 05:22 97.7 69 20 151/102 95 Room Air 01/03/17 04:30 97.7 69 20 151/102 95 Room Air 01/03/17 04:00 73 01/03/17 00:00 97.9 79 20 153/121 93 Room Air 01/03/17 00:00 78 01/02/17 20:30 86 20 Room Air 01/02/17 20:00 86 01/02/17 20:00 98.0 124 20 158/107 98 Room Air 01/02/17 19:56 124 158/107 Intake and Output 01/03/17 01/04/17 19:00 07:00 Intake Total 120 ml Balance 120 ml Intake Oral 120 ml # Voids 2 Laboratory Tests Test 01/03/17 07:37 White Blood Count 7.2 K/UL (4.8-10.8) Red Blood Count 4.60 M/UL (4.70-6.10) L Hemoglobin 14.6 G/DL (14.2-18.0) Hematocrit 43.0 % (42.0-52.0) Mean Corpuscular Volume 94 FL (80-99) Mean Corpuscular Hemoglobin 31.7 PG (27.0-31.0) H Mean Corpuscular Hemoglobin Concent 33.9 G/DL (32.0-36.0) Red Cell Distribution Width 11.1 % (11.6-14.8) L Platelet Count 202 K/UL (150-450) Mean Platelet Volume 8.6 FL (6.5-10.1) Neutrophils (%) (Auto) 54.4 % (45.0-75.0) Lymphocytes (%) (Auto) 26.7 % (20.0-45.0) Monocytes (%) (Auto) 10.2 % (1.0-10.0) H Eosinophils (%) (Auto) 6.5 % (0.0-3.0) H Basophils (%) (Auto) 2.3 % (0.0-2.0) H Sodium Level 142 MMOL/L (136-145) Potassium Level 3.7 MMOL/L (3.5-5.1) Chloride Level 105 MMOL/L (98-107) Carbon Dioxide Level 33 MMOL/L (21-32) H Anion Gap 4 mmol/L (5-15) L Blood Urea Nitrogen 19 mg/dL (7-18) H Creatinine 1.4 MG/DL (0.55-1.30) H Estimat Glomerular Filtration Rate 57.0 mL/min (>60) Glucose Level 94 MG/DL (74-106) Calcium Level 9.3 MG/DL (8.5-10.1) Total Bilirubin 0.9 MG/DL (0.2-1.0) Aspartate Amino Transf (AST/SGOT) 20 U/L (15-37) Alanine Aminotransferase (ALT/SGPT) 38 U/L (12-78) Alkaline Phosphatase 102 U/L (46-116) Pro-B-Type Natriuretic Peptide 307 pg/mL (0-125) H Total Protein 7.6 G/DL (6.4-8.2) Albumin 3.7 G/DL (3.4-5.0) Globulin 3.9 g/dL Albumin/Globulin Ratio 0.9 (1.0-2.7) L Triglycerides Level 135 MG/DL (0-200) Cholesterol Level 153 MG/DL (< 200) LDL Cholesterol 98 mg/dL (<100) HDL Cholesterol 50 MG/DL (40-60) Cholesterol/HDL Ratio 3.1 (3.3-4.4) L Microbiology Date/Time Source Procedure Growth Status 01/01/17 12:16 Blood Blood Culture - Preliminary NO GROWTH AFTER 24 HOURS Resulted 01/01/17 12:00 Blood Blood Culture - Preliminary NO GROWTH AFTER 24 HOURS Resulted Objective HEAD AND NECK: Showed no JVD. LUNGS: Decreased breath sounds. CARDIOVASCULAR: Regular S1 and S2 with no gallop or murmur. ABDOMEN: Soft. EXTREMITIES: A 1+ pitting edema. RASHEL MA Jan 03, 2017 16:06
[2017-01-03] MEDS ORDERED: Carvedilol 6.25mg Tab ORAL ONE (16:30)
--- NOTE | 2017-01-03 16:45 | Diagnostic Imaging Report ---
Indication: Chest pain Technique: Resting images obtained using IV administration 10.5 mCi and technetium Myoview. Stress images not obtained, due to the procedure being canceled by the referring physician related to uncontrolled hypertension Comparison: None Findings: No definite perfusion defects are demonstrated. There is equivocal slight decreased perfusion in the inferior wall which is probably an artifact of soft tissue attenuation. The left ventricle is dilated. Impression: No definite infarct. Unable to assess for ischemia, given absence of post stress images Dilated left ventricle, nonspecific as regards etiology
[2017-01-03] MEDS ORDERED: Carvedilol 12.5mg tab ORAL SCH (21:00)
--- NOTE | 2017-01-06 06:36 | Discharge Summary ---
Discharge Summary Hospital Course Date of Admission Jan 01, 2017 at 15:26 Date of Discharge Jan 03, 2017 at 20:20 Admitting Diagnosis CHEST PAIN,CHF Reason for Hospitalization: hypertensive urgency, CHF HPI 36y/o male with no sig pmh who presents with SOB and epigastric pain. Pt notes worsening SOB since this morning especially with activity but also at rest. Also w/ orthopnea and PND. Denies sig BLE swelling, f/c, n/v, d/c, dysuria. C/o epigastric pain. Denies recent travel, sick contacts and trauma. Consultations Pulmonology, Cardiology Hospital Course Pt was admitted and ruled out for ACS with serial troponin/EKG. TTE showed EF 40 -45%. Pt was diuresed w/ lasix IV and initiated on BP medications. He has improvement in BP control. He was counseled on diet, exercise and weight loss. He developed ARMANDO likely 2/2 lasix and lisinopril which were held. Pt was given information on free clinic to followup for post d/c appt and lab check. Discharge Medications New Medications: Carvedilol (Coreg) 12.5 Mg Tablet 12.5 MG ORAL EVERY 12 HOURS for 30 Days, #60 TAB Carvedilol (Coreg) 6.25 Mg Tablet 12.5 MG ORAL EVERY 12 HOURS for 30 Days, #60 TAB Changed Medications: Amlodipine Besylate (Norvasc) 10 Mg Tablet 10 MG ORAL DAILY for 30 Days, TAB (Changed from: Amlodipine Besylate (Norvasc) 5 Mg Tablet 5 Mg ORAL DAILY 30 Days TAB) Continued Medications: No Known Medications* (NKM - No Known Medications*) . 0 ., 0 Refills Discharge Condition Upon Discharge: stable Discharge Disposition Patient was discharged to Home (01) Discharge Diagnoses: (1) Hypertensive urgency (2) Pulmonary edema (3) Acute on chronic combined systolic and diastolic CHF (congestive heart failure) (4) Obesity Ludwin Child M.D. Jan 06, 2017 06:36
--- NOTE | 2017-01-06 12:16 | Cardiology Report ---
APPROVED REPORT EKG Measurement Heart [id number] Normal sinus rhythm Possible Left atrial enlargement Nonspecific T wave abnormality Possible septal infarct, age undetermined Prolonged QT Abnormal ECG
--- NOTE | 2017-01-06 13:58 | Cardiology Report ---
APPROVED REPORT EXAM: Two-dimensional and M-mode echocardiogram with Doppler and color Doppler. INDICATION Congestive Heart Failure M-Mode DIMENSIONS IVSd1.5 (0.7-1.1cm)Left Atrium (MM)4.3 (1.6-4.0cm) LVDd7.0 (3.5-5.6cm)Aortic Root4.6 (2.0-3.7cm) PWd1.5 (0.7-1.1cm)Aortic Cusp Exc.2.9 (1.5-2.0cm) LVDs5.5 (2.5-4.0cm) PWs1.9 cm Significant left ventricular enlargement. Mild global left ventricular hypokinesis. Left ventricular ejection fraction estimated to be 50 %. Moderate left ventricular hypertrophy. Anterior Echo-free space, may be due to pericardial fat or effusion. Mild bi-atrial enlargement. Right ventricular chamber size is within normal limits. Focal aortic valve sclerosis with adequate cusp excursion. Aortic root dilatation. Thickened mitral valve leaflets with normal excursion. Mitral annulus and aortic root calcification. Pulmonic valve not well visualized. Normal tricuspid valve structure. IVC at normal size with physiologic collapse. A color flow and spectral Doppler study was performed and revealed: Trace aortic regurgitation. Moderate mitral regurgitation. Mitral inflow indicates normal left ventricular diastolic function. Trace tricuspid regurgitation. Tricuspid systolic velocities suggests peak right ventricular systolic pressure of 14 mmHg.
== END 2017-01-03 20:20 | disposition home or self-care (01) | DRG 194 ==
LOC: EMR 12:26 → EDBEDREQ 14:47 → 2E 15:26 → EDBEDREQ 17:09
DX: I50.43 Acute on chronic combined systolic (congestive) and diastolic (congestive) heart failure (principal); I45.81 Long QT syndrome; E66.9 Obesity, unspecified; I16.0 Hypertensive urgency; R07.89 Other chest pain
CPT/HCPCS: 36415; 71010; 78451; 80048; 80053; 80061; 80076; 80306; 81003; 83036; 83735; 83880; 84443; 84484; 85025; 87040; 93005; 93306; 94664; 99285; J8499